=== PATIENT | male | born 1970 | race Caucasian/White ===

== ENCOUNTER 2019-03-14 13:07 | Day surgery (SDC) | payer BC, OTHER ==
[~2019-03-14] VITALS: Ht 182.9 cm; Wt 84.0 kg
[2019-03-14] MEDS ORDERED: LACTATED RINGERS 1,000 ML IV SCH (13:29)
[2019-03-14 13:31] VITALS: BP 119/80
[2019-03-14] MEDS ORDERED: OMEP-110 PO (13:38)
[2019-03-14] MEDS ORDERED: MULTIVITAMIN (13:40)
[2019-03-14] MEDS ORDERED: DICY10CA3 PO (13:40)
[2019-03-14] MEDS ORDERED: DEXT5TAB17 PO (13:40)
[2019-03-14] MEDS ORDERED: PROPOFOL 10 MG/ML, 20ML ONE (16:09)
[2019-03-14] MEDS ORDERED: FENTANYL PF 100 MCG/2ML IV PRN (16:30)
[2019-03-14] MEDS ORDERED: ONDANSETRON 2MG/ML, 2ML IV PRN (16:30)
== END 2019-03-14 18:15 | disposition home or self-care (01) ==
LOC: OUT 13:07
PROVIDERS: ATTEND Internal Medicine Geriatric Medicine
DX: D12.5 Benign neoplasm of sigmoid colon (principal); D12.3 Benign neoplasm of transverse colon; K63.5 Polyp of colon; K57.30 Diverticulosis of large intestine without perforation or abscess without bleeding; K64.8 Other hemorrhoids; K21.9 Gastro-esophageal reflux disease without esophagitis; F90.9 Attention-deficit hyperactivity disorder, unspecified type; Z88.8 Allergy status to other drugs, medicaments and biological substances
CPT/HCPCS: 45380; 88305; J2704; J7120